=== PATIENT | male | born 1970 ===

== ENCOUNTER 2018-02-23 10:36 | Emergency (ER) | payer SELFPAY ==
[2018-02-23] MEDS ORDERED: KETOROLAC 15 MG/ML VIAL IVP ONE (10:55)
[2018-02-23] MEDS ORDERED: MORPHINE 4 MG/ML SDV IVP ONE ×2 (10:55→11:55)
[2018-02-23 11:03] LABS: PLATELET COUNT, AUTOMATED 196 K/uL (150-450)
--- NOTE | 2018-02-23 11:30 | ER Report ---
History and Physical Time Seen By MD: 12:45 Hx. 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 Pain 10/10, non radiating, no prior episodes. Sharp, associated with urinary hesitancy. No hematuria. No diarrhea/constipation. No fever/chills/nausea/vomting. REVIEW OF SYSTEMS: Constitutional: No fever, no chills. Eyes: No discharge. ENT: No sore throat. Cardiovascular: No chest pain, no palpitations. Respiratory: No cough, no shortness of breath. Gastrointestinal: above Genitourinary: No hematuria. Musculoskeletal: No back pain. Skin: No rashes. Neurological: No headache. Allergies: Coded Allergies: No Known Drug Allergies (Unverified , 02/23/18) Home Meds No Active Prescriptions or Reported Meds Reviewed Nurses Notes: Yes Hx Smoking: No Constitutional Vital Sign - Last 24 Hours 02/23/18 02/23/18 02/23/18 02/23/18 10:37 10:45 10:51 11:06 Temp 96.5 Pulse 71 71 68 Resp 22 B/P (MAP) 148/92 148/92 (110) Pulse Ox 100 96 96 O2 Delivery Room Air 02/23/18 11:11 Pulse 66 Pulse Ox 91 Physical Exam General Appearance: The patient is alert, has no immediate need for airway protection and no signs of toxicity. Pt holding l flank, writhing in pain Eyes: Pupils equal and round no pallor or injection. ENT, Mouth: Mucous membranes are moist. Respiratory: There are no retractions, lungs are clear to auscultation. Cardiovascular: Regular rate and rhythm. Gastrointestinal: Abdomen is soft and non tender, no masses, bowel sounds normal. L CVAT Neurological: alert, oriented Skin: Warm and dry, no rashes. Musculoskeletal: Neck is supple non tender. Extremities are nontender, nonswollen and have full range of motion. DIFFERENTIAL DIAGNOSIS: After history and physical exam differential diagnosis was considered for abdominal pain including but not limited to aaa, appendicitis, cholecystitis, gastritis and urinary tract infection. Medical Decision Making Data Points Result Diagram: 02/23/18 1045 02/23/18 1045 Laboratory Hematology Test 02/23/18 10:45 Red Blood Count 6.10 M/uL (4.00-5.60) Mean Corpuscular Volume 89.3 fL (80.0-96.0) Mean Corpuscular Hemoglobin 31.9 pg (26.0-33.0) Mean Corpuscular Hemoglobin Concent 35.7 g/dL (32.0-36.0) Red Cell Distribution Width 13.3 % (11.5-14.5) Mean Platelet Volume 10.2 fL (7.2-11.1) Neutrophils (%) (Auto) 63.4 % (39.4-72.5) Lymphocytes (%) (Auto) 27.9 % (17.6-49.6) Monocytes (%) (Auto) 7.4 % (4.1-12.4) Eosinophils (%) (Auto) 0.5 % (0.4-6.7) Basophils (%) (Auto) 0.8 % (0.3-1.4) Nucleated RBC Relative Count (auto) 0.1 /100WBC Neutrophils # (Auto) 8.4 K/uL (2.0-7.4) Lymphocytes # (Auto) 3.7 K/uL (1.3-3.6) Monocytes # (Auto) 1.0 K/uL (0.3-1.0) Eosinophils # (Auto) 0.1 K/uL (0.0-0.5) Basophils # (Auto) 0.1 K/uL (0.0-0.1) Nucleated RBC Absolute Count (auto) 0.01 K/uL Sodium Level 138 mmol/L (137-145) Potassium Level 3.2 mmol/L (3.5-5.0) Chloride Level 103 mmol/L (98-107) Carbon Dioxide Level 19 mmol/L (22-30) Blood Urea Nitrogen 11 mg/dl (9-21) Creatinine 1.10 mg/dl (0.66-1.25) Glomerular Filtration Rate Calc > 60.0 Random Glucose 189 mg/dl (75-110) Calcium Level 9.1 mg/dl (8.4-10.2) Total Bilirubin 1.3 mg/dl (0.2-1.3) Aspartate Amino Transf (AST/SGOT) 32 U/L (0-35) Alanine Aminotransferase (ALT/SGPT) 51 U/L (0-56) Alkaline Phosphatase 87 U/L (0-126) Total Protein 7.9 g/dl (6.3-8.2) Albumin 4.6 g/dl (3.5-5.0) Chemistry Test 02/23/18 10:45 White Blood Count 13.2 k/uL (4.5-11.0) Red Blood Count 6.10 M/uL (4.00-5.60) Hemoglobin 19.4 g/dL (14.0-18.0) Hematocrit 54.5 % (42.0-52.0) Mean Corpuscular Volume 89.3 fL (80.0-96.0) Mean Corpuscular Hemoglobin 31.9 pg (26.0-33.0) Mean Corpuscular Hemoglobin Concent 35.7 g/dL (32.0-36.0) Red Cell Distribution Width 13.3 % (11.5-14.5) Platelet Count 196 K/uL (150-450) Mean Platelet Volume 10.2 fL (7.2-11.1) Neutrophils (%) (Auto) 63.4 % (39.4-72.5) Lymphocytes (%) (Auto) 27.9 % (17.6-49.6) Monocytes (%) (Auto) 7.4 % (4.1-12.4) Eosinophils (%) (Auto) 0.5 % (0.4-6.7) Basophils (%) (Auto) 0.8 % (0.3-1.4) Nucleated RBC Relative Count (auto) 0.1 /100WBC Neutrophils # (Auto) 8.4 K/uL (2.0-7.4) Lymphocytes # (Auto) 3.7 K/uL (1.3-3.6) Monocytes # (Auto) 1.0 K/uL (0.3-1.0) Eosinophils # (Auto) 0.1 K/uL (0.0-0.5) Basophils # (Auto) 0.1 K/uL (0.0-0.1) Nucleated RBC Absolute Count (auto) 0.01 K/uL Glomerular Filtration Rate Calc > 60.0 Calcium Level 9.1 mg/dl (8.4-10.2) Total Bilirubin 1.3 mg/dl (0.2-1.3) Aspartate Amino Transf (AST/SGOT) 32 U/L (0-35) Alanine Aminotransferase (ALT/SGPT) 51 U/L (0-56) Alkaline Phosphatase 87 U/L (0-126) Total Protein 7.9 g/dl (6.3-8.2) Albumin 4.6 g/dl (3.5-5.0) ED Course/Re-evaluation ED Course Patient presents with left renal colic. Exam, bedside ultrasound, CT consistent with left nephrolithiasis. Patient significantly improved after evaluation. We'll discharge with pain medication and provide follow up information. Procedure I performed bedside us to rule out hydronephrosis. Bedside US shows L hydronephrosis with calculus notable in L kidney. No r hydronephrosis. Decision to Disposition Date: Feb 23, 2018 Decision to Disposition Time: 12:14 Depart Departure Latest Vital Signs Vital Signs Date Time Temp Pulse Resp B/P (MAP) Pulse Ox O2 Delivery O2 Flow Rate FiO2 02/23/18 11:11 66 91 02/23/18 10:45 148/92 (110) 02/23/18 10:37 96.5 22 Room Air Impression: Primary Impression: Kidney stone on left side Condition: Improved Disposition: HOME OR SELF-CARE Referrals: [facility] 5 Days As we discussed, urinate into strainer, attempt to collect stone, and take to primary clinic for further analysis New Scripts Ibuprofen (IBUPROFEN) 800 Mg Tablet 1 TAB PO Q8H for Sleep, #30 TAB Prov: JUVENTINO JUAREZ MD 02/23/18 Ondansetron (ZOFRAN ODT) 4 Mg Tab.rapdis 4 MG PO Q6H PRN for NAUSEA/VOMITING, #10 TAB.MARISABEL 0 Refills Prov: JUVENTINO JUAREZ MD 02/23/18 Hydrocodone Bit/Acetaminophen (NORCO 5-325 TABLET) 1 Each Tablet 1 EACH PO Q4H for PAIN, #10 TAB Prov: JUVENTINO JUAREZ MD 02/23/18 Patient Instructions: Kidney Stones (ED) JUVENTINO JUAREZ MD Feb 23, 2018 11:30
--- NOTE | 2018-02-23 12:12 | RADIOLOGY IMAGING REPORT ---
FACILITY: [facility] - [place] PATIENT NAME: Arie Odonnell : 1970 MR: [id number] V: [id number] EXAM DATE: ORDERING PHYSICIAN: JUVENTINO JUAREZ TECHNOLOGIST: [place] [facility] [place]: Arie Odonnell : 1970 Visit/Account:[id number] Date of Sevice: 02/23/2018 Study: CT scan of the abdomen and pelvis without intravenous contrast Indication: Flank pain, question urinary stone Comparison study: None Technique: Multiple axial images were obtained through the abdomen and pelvis without the use of intr avenous contrast. Coronal and sagittal reconstructions were made from the original data set. One of the following dose optimization techniques was utilized in the performance of this exam: Autom ated exposure control; adjustment of the mA and/or kV according to the patient's size; or use of an i terative reconstruction technique. Specific details can be referenced in the facility's radiology C T exam operational policy. Findings: Kidneys and ureters: There are multiple bilateral renal stones within the kidney collecting systems. The left kidney is mild to moderately hydronephrotic. The left ureter is dilated to the bladder base. At the left UVJ, there is a stone present. This measures 4 mm in greatest dimension. The right ureter is unremarkable. Liver: The liver is unremarkable. Spleen: The spleen is unremarkable. Gallbladder: The gallbladder is unremarkable. STOMACH: Unremarkable Pancreas and adrenal glands: Unremarkable Bowel: No abnormalities identified within the large bowel or small bowel. Retroperitoneum: Unremarkable. Pelvis:The pelvis is unremarkable. The urinary bladder is unremarkable. Bony structures: The visualized bony structures are unremarkable. IMPRESSION: 4 mm stone at left UVJ. There is mild to moderate left hydronephrosis. There is left hydr oureter. There are multiple calculi present within the kidney collecting systems bilaterally Report Dictated By: Ricco Pritchard at 02/23/2018 12:03 PM Report E-Signed By: Ricco Pritchard at 02/23/2018 12:07 PM WSN:[id number]
[2018-02-23] MEDS ORDERED: IBUP800T37 PO (12:17)
[2018-02-23] MEDS ORDERED: ONDA4TAB PO (12:17)
[2018-02-23] MEDS ORDERED: HYDR-4309 PO (12:17)
[2018-02-23 12:28] VITALS: BP 152/110
== END 2018-02-23 12:37 | disposition home or self-care (01) ==
LOC: ER 11:02
DX: N20.0 Calculus of kidney (principal)
CPT/HCPCS: 74176; 85025; 96374; 96375; 96376; 99284; J1885; J2270; 82040; 82247; 82310; 82374; 82435; 82565; 82947; 84075; 84132; 84155; 84295; 84450; 84460; 84520